=== PATIENT | male | born 1985 | race Caucasian/White ===

== ENCOUNTER 2022-04-02 11:40 | Emergency (ER) | payer MEDICAID ==
[~2022-04-02] VITALS: Ht 188 cm; Wt 133.0 kg
[2022-04-02] MEDS ORDERED: TETANUS, DIPHTHERIA, PERTUSSIS VAC/PF 0.5ML (>10YR OLD) IM ONE (12:15)
[2022-04-02] MEDS ORDERED: LIDOCAINE HCL/PF 1% 10 MG/ML 5ML VIAL INFIL ONE (12:15)
[2022-04-02] MEDS ORDERED: KETOROLAC 30MG/ML VIAL IM ONE (12:15)
[2022-04-02] MEDS ORDERED: BACITRACIN ZINC OINT UDPKT TOP ONE (12:15)
[2022-04-02] MEDS ORDERED: IBUP-2029 MT (13:15)
[2022-04-02 13:36] VITALS: BP 139/86
== END 2022-04-02 13:37 | disposition home or self-care (01) ==
LOC: ER 12:34
DX: S61.210A Laceration without foreign body of right index finger without damage to nail, initial encounter (principal); W26.8XXA Contact with other sharp object(s), not elsewhere classified, initial encounter; Y93.G1 Activity, food preparation and clean up; Y92.010 Kitchen of single-family (private) house as the place of occurrence of the external cause
CPT/HCPCS: 12002; 73140; 96372; 99283; J1885; J3490; Z7610